=== PATIENT | male | born 1950 | race Asian ===

== ENCOUNTER 2018-12-19 14:02 | Emergency (ER) | payer BC ==
[~2018-12-19] VITALS: Ht 167.6 cm; Wt 72.0 kg
[2018-12-19 14:08] VITALS: BP 148/71; PULSE 76; RESP 18; Ht 167.6 cm; Wt 72.0 kg
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
== END 2018-12-19 15:38 | disposition home or self-care (01) ==
LOC: FTE 14:02
DX: S60.511A Abrasion of right hand, initial encounter (principal); V89.2XXA Person injured in unspecified motor-vehicle accident, traffic, initial encounter
CPT/HCPCS: 72040